=== PATIENT | female | born 1955 | race Two or more races ===

== ENCOUNTER 2020-11-30 08:00 | Outpatient (CLI) | payer OTHER | END 2020-11-30 08:30 | disposition home or self-care (01) | LOC: PPH VACUNA 08:00 | DX: Z23 Encounter for immunization (principal) ==

== ENCOUNTER 2021-01-20 13:52 | Outpatient (CLI) | payer OTHER | END 2021-01-20 14:04 | disposition home or self-care (01) | LOC: NUCLEAR 13:52 | PROVIDERS: ATTEND Internal Medicine Endocrinology, Diabetes & Metabolism | DX: M81.0 Age-related osteoporosis without current pathological fracture (principal) ==

== ENCOUNTER 2021-07-29 08:00 | Outpatient (CLI) | payer OTHER | END 2021-07-29 08:30 | disposition home or self-care (01) | LOC: PPH VACUNA 08:00 | PROVIDERS: ATTEND Emergency Medicine Pediatric Emergency Medicine | DX: Z23 Encounter for immunization (principal) ==

== ENCOUNTER 2022-01-27 10:50 | Outpatient (CLI) | payer OTHER | END 2022-01-27 11:00 | disposition home or self-care (01) | LOC: PPH VACUNA 10:50 | PROVIDERS: ATTEND Emergency Medicine Pediatric Emergency Medicine | DX: Z23 Encounter for immunization (principal) ==

== ENCOUNTER 2022-05-22 14:41 | Outpatient (CLI) | payer OTHER | END 2022-05-22 14:51 | disposition home or self-care (01) | LOC: RAD 14:41 | PROVIDERS: ATTEND Obstetrics & Gynecology Gynecology | DX: I10 Essential (primary) hypertension (principal) ==

== ENCOUNTER 2022-06-05 06:30 | Day surgery (SDC) | payer OTHER ==
[~2022-06-05] VITALS: Ht 160 cm; Wt 56.7 kg
[~2022-06-05 06:30] MED LIST: CRESTOR5 MG PO; TOPROL XL50 M1 PO
[2022-06-05] MEDS ORDERED: IBU600 MG PO (09:53)
== END 2022-06-05 15:45 | disposition home or self-care (01) ==
LOC: CIR.AMB 06:30
PROVIDERS: ATTEND Obstetrics & Gynecology Gynecology
DX: N95.0 Postmenopausal bleeding (principal); N84.0 Polyp of corpus uteri; Z20.822 Contact with and (suspected) exposure to COVID-19; I10 Essential (primary) hypertension

== ENCOUNTER 2023-05-03 08:51 | Outpatient (CLI) | payer OTHER ==
[~2023-05-03 08:51] MED LIST changes: +IBU600 MG PO
== END 2023-05-03 08:52 | disposition home or self-care (01) ==
LOC: NUCLEAR 08:51
PROVIDERS: ATTEND Internal Medicine
DX: M81.0 Age-related osteoporosis without current pathological fracture (principal)